=== PATIENT | male | born 2005 | race Caucasian/White ===

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

== ENCOUNTER 2024-06-19 18:14 | Emergency (ER) | payer OTHER, SELFPAY ==
[2024-06-19 18:15] VITALS: BP 135/67; PULSE 73; RESP 13; TEMP 37; O2SAT 98; BMI 25.4
--- NOTE | 2024-06-19 18:22 | RAD_ITS ---
PROCEDURE: CHEST PA AND LATERAL 06/19/2024 REASON FOR EXAM: CP TECHNIQUE: Frontal and lateral views of the chest. COMPARISON: 03/24/2021 FINDINGS: Hardware: None Heart: The heart size is normal. Mediastinum: The mediastinal contour is unremarkable. Lungs: No focal consolidation. No pneumothorax. No pleural effusion. Bones: The bones are unremarkable. RAD/Chest PA and Lateral IMPRESSION: NO ACUTE FINDINGS. Reading Location: [facility]
--- NOTE | 2024-06-19 18:22 | EKG12_ITS ---
Test Reason : SYNCOPE Blood Pressure : */* mmHG Vent. Rate : 71 BPM Atrial Rate : 71 BPM P-R Int : 168 ms QRS Dur : 96 ms QT Int : 364 ms P-R-T Axes : 38 71 22 degrees QTcB Int : 395 ms Normal sinus rhythm Normal ECG Confirmed by Blake Stuart ([id number]), material expeditor SHANIA RITTER ([id number]) on 06/24/2024 1:07:33 PM Referred By: CARY Confirmed By: Blake Stuart
--- NOTE | 2024-06-19 18:41 | EX.ED.DYSGE1 ---
HPI History of Present Illness Chief Complaint: Syncope Informant: patient and parent Onset/Context/Timing Onset: Today Context: Sudden Onset Timing: Intermittent Current Severity: Gone Maximum Severity: Mild Narrative Narrative: 18-year-old male no stated past medical or surgical history. Currently on no medications. No recent illness. He was drinking some soda. He felt like got stuck when he was swallowing it. He had sudden onset of chest pain and had a syncopal episode. Was only 5 to 10 seconds according to the family. No seizure activity. No injury. He is now feeling much better. He never had an episode like this before. Currently his pain-free symptom-free. Denies any recent illness. Prior similar symptoms: No Recent Illness/Hospitalization: No PFSH [facility] Medical History Physical exam, pre-employment Medical History no medical history Home Medications ?Medication ?Instructions ?Recorded ?Last Taken ?Type NK 06/19/24 Unknown History Allergy/AdvReac Type Severity Reaction Status Date / Time No Known Allergies Allergy Verified 06/19/24 18:15 Surgical History no surgical history no surgical history Social History Smoking Status: Former smoker ROS ROS ED ROS Narrative Denies recent illness. Constitutional Constitutional ED: Denies chills or fever(s) Eyes Eyes: Denies blurry vision ENT ENT ED: Denies ear pain Cardiovascular Cardiovascular: Denies chest pain Respiratory/Chest Respiratory/Chest: Denies cough or dyspnea Gastrointestinal Gastrointestinal: Denies abdominal pain Genitourinary Genitourinary ED: Denies dysuria Musculoskeletal Musculoskeletal: Denies arthralgias Integumentary Denies abscess or Abrasions Neurologic Neurologic: Denies headache(s) Psychiatric Psychiatric: Denies anxiety or depression Endocrine Endocrinology: Denies cold intolerance Hematologic/Lymphatic Hematologic/Lymphatic: Reports none Allergic/Immunologic Allergic/Immunologic ED: Denies mouth swelling, tongue swelling or urticaria EXAM Physical Exam Narrative Exam Narrative: Well-appearing 18-year-old male. Vital signs stable afebrile. Pulse ox 98% on room air no signs hypoxia. No distress. Mom at bedside. H EENT exam pupils round reactive light. No trauma. Moist mucous membranes. Neck nontender. No JVD. No lymphadenopathy. No meningismus. Lungs clear to auscultation bilaterally. Heart regular rate and rhythm rate about 70 no murmur. Chest wall ribs nontender. No reproducible pain. Normal appearance. Abdomen soft nontender. Normal bowel sounds without peritoneal signs. Moving all 4 extremities. Nontender no edema. Normal strength. Normal sensation. Calves are nontender without edema or cords. Equal symmetrical radial pulses. Normal certified physician's assistant strength. Back nontender. Neurologically is awake alert. Answering questions following commands. No focal motor deficits. NIH of 0. Const Vital Signs: 06/19/24 18:15 06/19/24 18:18 06/19/24 20:15 Temperature 98.6 F Temperature Source Temporal Pulse Rate 73 65 Respiratory Rate 13 16 Respiratory Effort Normal Respiratory Pattern Normal Blood Pressure 135/67 H 114/62 Blood Pressure Mean 89 79 Pulse Ox 98 98 Oxygen Delivery Method Room Air Room Air 06/19/24 21:10 Temperature 97.9 F Temperature Source Pulse Rate 67 Respiratory Rate 16 Respiratory Effort Respiratory Pattern Blood Pressure 115/74 Blood Pressure Mean 87 Pulse Ox 98 Oxygen Delivery Method Positive well nourished and well developed; Negative for obese, cachectic, contractures or unkempt General Appearance ED: well developed; Negative for unkempt, cachectic, contractures, cyanotic, diaphoretic or pallor Nutritional Appearance: Negative for cachectic or obese HEENT Reports moist mucous membranes Negative for trauma or tenderness Eyes PERRL and EOMs intact bilaterally Neck no lymphadenopathy, supple and no JVD Chest Wall inspection of chest normal and palpation of chest normal Resp normal respiratory effort and clear to auscultation bilaterally Effort and Inspection: Negative for retractions Auscultation: Negative for rales, rhonchi or wheezes Cardio regular rate, regular rhythm, S1 normal heart sound, S2 normal heart sound and no murmurs GI normal to inspection, nondistended, normoactive bowel sounds, non-tender, non-distended and no masses Auscultation: normoactive bowel sounds Palpation: soft; Negative for tender, guarding or rebound tenderness present Back/Spine no CVA tenderness General Back: Negative for CVA tenderness Cervical Spine: Negative for cervical spine tenderness Thoracic Spine / Upper Back: Negative for thoracic spinal tenderness or paraspinal muscle tenderness Lumbar Spine / Lower Back: Negative for lumbar spinal tenderness Extremity normal to inspection General Extremety ED: Negative for edema or tenderness General Extremity: Negative for edema Neuro oriented x3 and CN's II-XII intact bilaterally Sensorium / Orientation: alert; Negative for orientation impaired, lethargic or stuporous Motor Exam: strength 5/5 throughout Psych mental status grossly normal Appearance: Negative for unkempt Attitude: No agitated Mood & Affect: Negative for depressed, anxious or tearful Skin no rashes or lesions noted, no wounds and skin turgor normal General Skin Exam: elasticity normal; Negative for jaundice or pallor Lesions: No lesion noted Rashes: No rashes noted Trauma: Negative for abrasion Wounds: Negative for wounds noted MDM MDM MDM Narrative Medical decision making narrative: 18-year-old male was drinking soda and had sudden onset of chest pain and then had a syncopal event. Currently pain-free symptom-free. Syncope lasted 5 to 10 seconds. His exam currently is normal and benign. Most likely a vasovagal episode. I do not think this is a cardiac event. I do not think he has a PE. He has no DVT or PE history or risk factors. He has a benign exam. Screening labs chest x-ray and EKG be obtained. Repeat exam patient is doing well at 9:10 PM. Repeat exam is normal and unchanged. Heart rates in the 60s. Resting comfortably. I went over all test results of both he and his family. They are comfortable with him being discharged to home. History & Record Review Discussion w/independent historian: Patient Additional record(s) reviewed:: Prior inpatient record, Prior outpatient record, Prior ED visit and Prior labs Lab Data Attestation: I reviewed the patient's lab results. Lab results narrative: CBC shows no acute abnormality. White count 6. H&H 14 and 40. Platelets 256. Chemistry is normal. Gap 12. BUN of 20 creatinine of 1. Glucose 126. Chest x-ray normal. Labs: Laboratory Results - last 24 hr 06/19/24 18:20 WBC 6.7 RBC 4.89 Hgb 14.2 Hct 40.3 MCV 82.4 MCH 29.0 MCHC 35.2 RDW Std Deviation 33.9 L RDW Coeff of Chrissy 11.2 L Plt Count 256 MPV 9.7 Immature Gran % (Auto) 0.300 Neut % (Auto) 54.6 Lymph % (Auto) 38.7 [place] % (Auto) 5.4 Eos % (Auto) 0.6 Baso % (Auto) 0.4 Absolute Neuts (auto) 3.6 Absolute Lymphs (auto) 2.58 Nucleated RBC % 0 Sodium 139 Potassium 3.7 Chloride 104 Carbon Dioxide 22.5 Anion Gap 12 BUN 20 H Creatinine 1.06 Estim Creat Clear Calc 107.55 Est GFR (MDRD) Non-Af 103 BUN/Creatinine Ratio 19.2 Glucose 126 H Calcium 9.5 Radiography Chest X-Ray - ED: 2 View, Read by ED Physician, Read by Radiologist, Normal, Heart, Lungs, Mediastinum, Bony Structures and No Acute Disease Diagnostic Testing: Clinical Impression(s) from Imaging Studies Chest X-Ray 06/19/24 18:22 IMPRESSION: NO ACUTE FINDINGS. [facility] Chest x-ray, 2 views, AP and lateral, interpreted by myself shows no acute abnormality. Normal cardiac silhouette. Normal lung goins. Also read by radiologist agrees. Rhythm Strip Rhythm Strip: Sinus Rhythm Rate: 71 Ectopy: None EKG Initial EKG: Attestation: I personally reviewed and interpreted this EKG as follows: Interpretation: Sinus Rhythm and No Acute Injury Pattern Comments: Normal sinus rhythm rate of 71 no acute signs of LA or ischemia. No dysrhythmia. Discharge Plan Triage Chief Complaint: Syncope ED Provider: Socrates Russo Dx/Rx/DC Orders Clinical Impression: Syncope, vasovagal, Atypical chest pain Instructions: ED Fainting, Vagal Reaction Prescriptions: No Action NK Primary Care Provider: Tex Hebert Referrals: Tex Hebert, [Primary Care Provider] - 3-5 Days if not improving Activity Restrictions/Additional Instructions: Your labs, EKG and chest x-ray are unremarkable. Follow-up with your doctor as needed. Print Language: Sami Disposition Disposition: Home, Self Care
[2024-06-19 18:57] LABS: Absolute Lymphocyte Count 2.58 X10^3/uL (0.83-4.51); Absolute Neutrophil Count 3.6 X10^3/uL (2.0-7.7); Basophil# 0.03 X10^3/uL; Basophil% 0.4 % (0-1); Eosinophil# 0.04 X10^3/uL; Eosinophils% 0.6 % (0-5); Hematocrit 40.3 % (40-54); Hemoglobin 14.2 g/dL (13.0-16.5); Lymphocyte # 2.58 X10^3/ul (0.83-4.51); Lymphocyte % 38.7 % (19-41); Mean Corp Hgb Conc 35.2 g/dL (32-36); Mean Corpuscular Volume 82.4 fL (80-94); Mean Platelet Vol. 9.7 fl (6.2-12.0); Monocyte# 0.36 X10^3/uL; Monocyte% 5.4 % (0-10); NRBC Flagged by Analyzer 0 % (0-5); Neutrophil # 3.64 X10^3/uL (2.7-7.7); Neutrophil % 54.6 % (47-70); Platelet Count 256 K/mm3 (150-450); RBC Distribution Width CV 11.2 % (11.6-14.6); RBC Distribution Width SD 33.9 fl (35.1-43.9); Red Blood Count 4.89 M/mm3 (4.6-6.2); White Blood Count 6.7 K/mm3 (4.4-11.0)
[2024-06-19 19:21] LABS: Anion Gap 12 (5-15); BUN 20 mg/dL (4-19); BUN/Creat Ratio 19.2 RATIO (10-20); Calcium,Total 9.5 mg/dL (7.6-11.0); Carbon Dioxide 22.5 mmol/L (21.0-32.0); Chloride 104 mmol/L (98-108); Creatinine, Serum 1.06 mg/dL (0.70-1.20); EST Glomerular Filtration Rate 103 (>60); Estimated Creatinine Clearance 107.55 ml/min (50-250); Glucose 126 mg/dL (70-99); Potassium 3.7 mmol/L (3.3-5.1); Sodium Level 139 mmol/L (133-145)
[2024-06-19 20:15] VITALS: BP 114/62; PULSE 65; RESP 16; O2SAT 98
[2024-06-19 21:10] VITALS: BP 115/74; PULSE 67; RESP 16; TEMP 36.6; O2SAT 98
== END 2024-06-19 21:15 | disposition home or self-care (01) ==
PROVIDERS: Emergency Provider Emergency Medicine; PCP Family Medicine; Visit Provider Emergency Medicine
DX: R55 Syncope and collapse (principal); R07.89 Other chest pain; Z87.891 Personal history of nicotine dependence
CPT/HCPCS: 71046; 80048; 85025; 93005; 99285; A4216